=== PATIENT | female | born 1975 | race Caucasian/White ===

== ENCOUNTER → 2017-05-08 | Outpatient (CLI) | payer OTHER | LOC: BRMIMAGING 11:32 | PROVIDERS: ATTEND Specialist | DX: S52.121A Displaced fracture of head of right radius, initial encounter for closed fracture (principal) | CPT/HCPCS: 73080-PO; 73090-PO ==

== ENCOUNTER → 2017-05-24 | Outpatient (CLI) | payer OTHER | LOC: BRMIMAGING 13:57 | PROVIDERS: ATTEND Internal Medicine | DX: S42.401D Unspecified fracture of lower end of right humerus, subsequent encounter for fracture with routine healing (principal) | CPT/HCPCS: 73080-PO ==